=== PATIENT | female | born 1980 | race Caucasian/White ===

== ENCOUNTER 2017-06-10 21:46 | Emergency (ER) | payer OTHER ==
--- NOTE | 2017-06-10 22:02 | EDPHY ---
H & P Stated Complaint: per pt boyfriend, pt began having weakness, unsteady gate, lack of concen HPI/ROS: HPI CHIEF COMPLAINT: Generalized weakness, lightheadedness, crying HISTORY OF PRESENT ILLNESS: Patient otherwise healthy 36-year-old female she presents emergency room by private vehicle with her boyfriend. But reports that she was normal this evening they ate dinner. Suddenly after dinner she states she felt very tired globally. Boyfriend reports that they dinner she felt lightheaded and sleepy she laid down on the ground fell asleep. He encouraged her to go to bed. They put her in bed and she was having a hard time pushing herself up in bed. She began crying. States she feels globally weak. Here in emergency room she denies headache, denies room spinning sensation, denies chest pain or shortness of breath, denies neck pain. Denies nausea or vomiting. Main complaint is global weakness. Also states she feels pressure in her head. 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 Exam Constitutional tearful, crying, anxious appearing, triage nursing summary reviewed, vital signs reviewed, awake/alert. Eyes normal conjunctivae and sclera, EOMI, PERRLA. HENT normal inspection, atraumatic, moist mucus membranes, no epistaxis, neck supple/ no meningismus, no raccoon eyes. Respiratory clear to auscultation bilaterally, normal breath sounds, no respiratory distress, no wheezing. Cardiovascular rate normal, regular rhythm, no murmur, no edema, distal pulses normal. Gastrointestinal soft, non-tender, no rebound, no guarding, normal bowel sounds, no distension, no pulsatile mass. Genitourinary no CVA tenderness. Musculoskeletal no midline vertebral tenderness, full range of motion, no calf swelling, no tenderness of extremities, no meningismus, good pulses, neurovascularly intact. Skin pink, warm, & dry, no rash, skin atraumatic. Neurologic moves all the extremities, slow to follow commands, awake, alert and oriented x 3, AAOx3, moves all 4 extremities equally, motor intact, sensory intact, CN II-XII intact, normal cerebellar, normal vision, normal speech. Psychiatric normal mood/affect. Heme/Lymph/Immune no lymphadenopathy. Differential Diagnosis: Includes but is not limited to in a particular order, acute anxiety, panic attack, electrolyte disturbance, intracranial bleed Medical Decision Making: Plan for plan for this patient full quality assurance monitor final, IV establishment, IV fluid bolus, IV Ativan for anxiety, CT head without contrast rule out intracranial bleed, electrolytes, thyroid, urinalysis, drug screen, alcohol. Re-evaluation: EKG interpretation by me on record in [facility] system. Impression Time of EKG 2223, sinus rhythm rate of 80 there is no acute ischemic changes specifically no ST elevation ST depression T-wave abnormalities or prolonged intervals. CT scan of the Head without IV contrast The results of the study are negative for acute intracranial abnormality The study was read by Dr. garcia. I viewed the images myself on the PACS system. 2336: re-examination this time patient is unable to sit up without room spinning dizziness sensation. Said changed when she presented. I will proceed with CT angiogram head and neck to make sure she does not have a dissection posterior circulation injury. This may be benign positional vertigo. Will also give her p.o. meclizine. 1212AM: CT angiogram head and neck are negative for posterior circulation dissection stroke thrombus. Unremarkable CT angiogram head and neck. Reported to me by Dr. Garcia. 0225AM: I did re-evaluate this patient this time she slept for few hours here in the emergency room. She is now awake sitting upright without any dizziness she ambulated well to the bathroom without any dizziness or ataxia. She has normal gait. She is not nauseous she states the dizziness is greatly improved with meclizine. The pressure in her head is great improved with Toradol. Her urinalysis pending at this time. II gave her the option of being admitted to the hospital for dizziness versus going home she would like to go home. I will prescribe her meclizine for home she does understand she develops worsening dizziness, vomiting, headaches return to the emergency room. Stay well- hydrated take it easy tomorrow. Return if worse. She understands. At time of discharge her neurological exam is unremarkable specifically no focal neuro deficits. Cranial nerves are intact. She has a steady gait. No ataxia. No ongoing dizziness at this time. 0251AM: Urinalysis reviewed. Patient resting comfortably. Patient would like to go home. Ambulated well without difficulty. Meclizine prescription provided. Return emergency room if any worsening symptoms questions or concerns she understands. Source: Patient - Medical/Surgical History Hx Asthma: No Hx Chronic Respiratory Disease: No Hx Diabetes: No Hx Cardiac Disease: No Hx Renal Disease: No Hx Cirrhosis: No Hx Alcoholism: No Hx HIV/AIDS: No Hx Splenectomy or Spleen Trauma: No Other PMH: schulte, R shoulder surg, orif L forearm - Social History Smoking Status: Former smoker Constitutional: Initial Vital Signs Temperature (C) 36.5 C 06/10/17 21:49 Heart Rate 78 06/10/17 21:49 Respiratory Rate 20 06/10/17 21:49 Blood Pressure 130/74 H 06/10/17 21:49 O2 Sat (%) 100 06/10/17 21:49 O2 Delivery Mode Room Air Allergies/Adverse Reactions: latex Allergy (Mild, Verified 06/10/17 21:56) Itching Home Medications: Medication Instructions Recorded Miscellaneous Medical Supply [NO 0 ea MISC AD 07/28/12 HOME MEDS] Meclizine HCl [Meclizine HCl 25 mg 25 mg PO BID #7 tab 06/11/17 (RX,OTC)] Medical Decision Making - Diagnostics Imaging Results: Imaging Impressions Chest X-Ray 06/10/17 22:10 Impression: Clear lungs. No acute process. Head CT 06/10/17 22:10 Impression: Normal brain. No intracranial hemorrhage, mass, or evidence of ischemia. Findings discussed with Emergency Department physician, Grabiel Jack MD at 06/10/2017 23:03. Head CTA 06/10/17 23:34 Impression: 1. Normal intracranial arterial circulation. No evidence of embolic disease or aneurysm. 2. Patent venous system. Findings discussed with Emergency Department physician, Grabiel Jack MD at 06/11/2017 0:12. - Data Points Laboratory Results: Laboratory Results 06/10/17 22:25 06/10/17 22:25 06/11/17 06/10/17 06/10/17 02:15 22:25 22:25 WBC RBC Hgb Hct MCV MCH MCHC RDW Plt Count MPV Neut % (Auto) Lymph % (Auto) [place] % (Auto) Eos % (Auto) Baso % (Auto) Nucleat RBC Rel Count Absolute Neuts (auto) Absolute Lymphs (auto) Absolute Monos (auto) Absolute Eos (auto) Absolute Basos (auto) Absolute Nucleated RBC Immature Gran % Immature Gran # Sodium 141 mEq/L mEq/L (134-144) Potassium 4.3 mEq/L mEq/L (3.5-5.2) Chloride 108 mEq/L mEq/L (97-110) Carbon Dioxide 21 mEq/l L mEq/l (22-31) Anion Gap 12 mEq/L mEq/L (8-16) BUN 15 mg/dL mg/dL (7-23) Creatinine 1.2 mg/dL H mg/dL (0.6-1.0) Estimated GFR 51 Glucose 102 mg/dL H mg/dL (70-100) Calcium 9.6 mg/dL mg/dL (8.5-10.4) Total Bilirubin 0.9 mg/dL mg/dL (0.1-1.4) Conjugated Bilirubin 0.4 mg/dL mg/dL (0.0-0.5) Unconjugated Bilirubin 0.5 mg/dL mg/dL (0.0-1.1) AST 29 IU/L IU/L (14-46) ALT 27 IU/L IU/L (9-52) Alkaline Phosphatase 54 IU/L IU/L (38-126) Troponin I < 0.012 ng/mL ng/mL (0-0.034) Total Protein 7.2 g/dL g/dL (6.3-8.2) Albumin 4.3 g/dL g/dL (3.5-5.0) TSH 4.170 uIU/mL uIU/mL (0.465-4.680) Beta HCG, Qual NEGATIVE Urine Color YELLOW Urine Appearance CLEAR Urine pH 7.0 (5.0-7.5) Ur Specific [place] > 1.035 H (1.002-1.030) Urine Protein NEGATIVE (NEGATIVE) Urine Ketones NEGATIVE (NEGATIVE) Urine Blood NEGATIVE (NEGATIVE) Urine Nitrate NEGATIVE (NEGATIVE) Urine Bilirubin NEGATIVE (NEGATIVE) Urine Urobilinogen NEGATIVE EU EU (0.2-1.0) Ur Leukocyte Esterase NEGATIVE (NEGATIVE) Urine Glucose NEGATIVE (NEGATIVE) Urine Opiates Screen NEGATIVE (NEGATIVE) Urine Barbiturates NEGATIVE (NEGATIVE) Ur Phencyclidine Scrn NEGATIVE (NEGATIVE) Ur Amphetamine Screen NEGATIVE (NEGATIVE) U Benzodiazepines Scrn NEGATIVE (NEGATIVE) Urine Cocaine Screen NEGATIVE (NEGATIVE) U Marijuana (THC) Screen NEGATIVE (NEGATIVE) Ethyl Alcohol < 10 mg/dL mg/dL (0-10) 06/10/17 22:25 WBC 9.72 10^3/uL H 10^3/uL (3.80-9.50) RBC 4.40 10^6/uL 10^6/uL (4.18-5.33) Hgb 13.6 g/dL g/dL (12.6-16.3) Hct 40.2 % % (38.0-47.0) MCV 91.4 fL fL (81.5-99.8) MCH 30.9 pg pg (27.9-34.1) MCHC 33.8 g/dL g/dL (32.4-36.7) RDW 13.0 % % (11.5-15.2) Plt Count 294 10^3/uL 10^3/uL (150-400) MPV 11.1 fL fL (8.7-11.7) Neut % (Auto) 51.3 % % (39.3-74.2) Lymph % (Auto) 35.6 % % (15.0-45.0) [place] % (Auto) 9.8 % % (4.5-13.0) Eos % (Auto) 2.6 % % (0.6-7.6) Baso % (Auto) 0.5 % % (0.3-1.7) Nucleat RBC Rel Count 0.0 % % (0.0-0.2) Absolute Neuts (auto) 4.99 10^3/uL 10^3/uL (1.70-6.50) Absolute Lymphs (auto) 3.46 10^3/uL H 10^3/uL (1.00-3.00) Absolute Monos (auto) 0.95 10^3/uL H 10^3/uL (0.30-0.80) Absolute Eos (auto) 0.25 10^3/uL 10^3/uL (0.03-0.40) Absolute Basos (auto) 0.05 10^3/uL 10^3/uL (0.02-0.10) Absolute Nucleated RBC 0.00 10^3/uL 10^3/uL (0-0.01) Immature Gran % 0.2 % % (0.0-1.1) Immature Gran # 0.02 10^3/uL 10^3/uL (0.00-0.10) Sodium Potassium Chloride Carbon Dioxide Anion Gap BUN Creatinine Estimated GFR Glucose Calcium Total Bilirubin Conjugated Bilirubin Unconjugated Bilirubin AST ALT Alkaline Phosphatase Troponin I Total Protein Albumin TSH Beta HCG, Qual Urine Color Urine Appearance Urine pH Ur Specific [place] Urine Protein Urine Ketones Urine Blood Urine Nitrate Urine Bilirubin Urine Urobilinogen Ur Leukocyte Esterase Urine Glucose Urine Opiates Screen Urine Barbiturates Ur Phencyclidine Scrn Ur Amphetamine Screen U Benzodiazepines Scrn Urine Cocaine Screen U Marijuana (THC) Screen Ethyl Alcohol Medications Given: Discontinued Medications Sodium Chloride (Ns) 1,000 mls @ 0 mls/hr IV ONCE ONE; Wide Open PRN Reason: Protocol Stop: 06/10/17 22:11 Last Admin: 06/10/17 22:26 Dose: 1,000 mls Sodium Chloride (Ns) 1,000 mls @ 0 mls/hr IV ONCE ONE PRN Reason: Wide Open Stop: 06/11/17 00:43 Last Admin: 06/11/17 01:19 Dose: 1,000 mls Ketorolac Tromethamine (Toradol) 15 mg IVP EDNOW ONE Stop: 06/11/17 00:43 Last Admin: 06/11/17 01:20 Dose: 15 mg Lorazepam (Ativan Injection) 0.5 mg IVP EDNOW ONE Stop: 06/10/17 22:11 Last Admin: 06/10/17 22:26 Dose: 0.5 mg Meclizine HCl (Meclizine Hcl) 25 mg PO EDNOW ONE Stop: 06/10/17 23:34 Last Admin: 06/10/17 23:40 Dose: 25 mg Departure - Departure Disposition: Home, Routine, Self-Care Clinical Impression: Vertigo Condition: Good Instructions: Vertigo (ED) Additional Instructions: 1. Stay well-hydrated drink lots of fluids. 2. Take meclizine if you become dizzy if your severely dizzy or vomiting or have a severe headache return to the emergency room. Referrals: NONE *PRIMARY CARE P,. [Primary Care Provider] - As per Instructions Prescriptions: Meclizine HCl [Meclizine HCl 25 mg (RX,OTC)] 25 mg PO BID #7 tab
[2017-06-10] MEDS ORDERED: LORazepam 2 MG/ML INJ IVP ONE (22:10)
[2017-06-10] MEDS ORDERED: NS 1,000 ML IV ONE (22:10)
--- NOTE | 2017-06-10 22:31 | CPEKG ---
Heart Rate: 80 RR Interval: 750 P-R Interval: 156 QRSD Interval: 84 QT Interval: 380 QTC Interval: 439 P [place]: 60 QRS [place]: 16 T Wave [place]: 5 EKG Severity - NORMAL ECG - EKG Impression: SINUS RHYTHM Electronically Signed By: Juan Carlos Kumar 13-Jun-2017 09:10:30
[2017-06-10 22:33] LABS: % IMMATURE GRANULYOCYTES 0.2 % (0.0-1.1); ABSOLUTE IMMATURE GRANULOCYTES 0.02 10^3/uL (0.00-0.10); ADD DIFF? NO; ADD MORPH? NO; ADD SCAN? NO; ATYPICAL LYMPHOCYTE FLAG 10 (0-99); FRAGMENT RBC FLAG 0 (0-99); HEMATOCRIT 40.2 % (38.0-47.0); HEMOGLOBIN 13.6 g/dL (12.6-16.3); LEFT SHIFT FLG 0 (0-99); LIPEMIA HEMOLYSIS FLAG 90 (0-99); MEAN CELL HEMOGLOBIN 30.9 pg (27.9-34.1); MEAN CELL HEMOGLOBIN CONCENTR. 33.8 g/dL (32.4-36.7); MEAN CELL VOLUME 91.4 fL (81.5-99.8); MEAN PLATELET VOLUME 11.1 fL (8.7-11.7); PLATELET CLUMPS FLAG 0 (0-99); PLATELET COUNT 294 10^3/uL (150-400)
[2017-06-10 22:59] LABS: ALANINE AMINOTRANSFERASE 27 IU/L (9-52); ALBUMIN 4.3 g/dL (3.5-5.0); ALKALINE PHOSPHATASE 54 IU/L (38-126); ANION GAP 12 mEq/L (8-16); ASPARTATE AMINOTRANSFERASE 29 IU/L (14-46); BILIRUBIN,TOTAL 0.9 mg/dL (0.1-1.4); BILIRUBIN-CONJUGATED 0.4 mg/dL (0.0-0.5); BILIRUBIN-UNCONJUGATED 0.5 mg/dL (0.0-1.1); CALCIUM 9.6 mg/dL (8.5-10.4); CARBON DIOXIDE 21 mEq/l (22-31); CHLORIDE 108 mEq/L (97-110); CREATININE 1.2 mg/dL (0.6-1.0); ETHANOL SERUM < 10 mg/dL (0-10); GLOMERULAR FILTRATION RATE 51; GLUCOSE 102 mg/dL (70-100); POTASSIUM 4.3 mEq/L (3.5-5.2); SODIUM 141 mEq/L (134-144); TOTAL PROTEIN 7.2 g/dL (6.3-8.2)
[2017-06-10 23:09] LABS: TROPONIN I < 0.012 ng/mL (0-0.034)
[2017-06-10] MEDS ORDERED: MECLIZINE HCL 25 MG TAB PO ONE (23:33)
[2017-06-10] MEDS ORDERED: IOPAMIDOL (ISOVUE 370) 100 ML BTL IV ONE (23:41)
[2017-06-11 00:15] VITALS: RESP 18
[2017-06-11] MEDS ORDERED: KETOROLAC 30 MG/1 ML SDV IVP ONE (00:42)
[2017-06-11] MEDS ORDERED: NS 1,000 ML IV ONE (00:42)
[2017-06-11 02:50] LABS: COLOR YELLOW; LEUKOCYTE ESTERASE,URINE NEGATIVE (NEGATIVE); NITRITE,URINE NEGATIVE (NEGATIVE)
[2017-06-11 03:17] VITALS: BP 113/48; PULSE 63; TEMP 98.6; O2SAT 98
== END 2017-06-11 03:18 | disposition home or self-care (01) ==
DX: R42 Dizziness and giddiness (principal); E86.9 Volume depletion, unspecified; Z87.891 Personal history of nicotine dependence; Z91.040 Latex allergy status
CPT/HCPCS: 80305; 96374; G0480; J1885; J2060; Q9967

== ENCOUNTER → 2017-08-06 | Outpatient (CLI) | payer OTHER ==
[~2017-08-06] MED LIST: GADOBUTROL 10 ML VIAL IVP ONE
== END ==
LOC: FIMAGING 19:33
PROVIDERS: ATTEND Physician Assistant Medical
DX: G43.009 Migraine without aura, not intractable, without status migrainosus (principal); R42 Dizziness and giddiness
CPT/HCPCS: A9585

== ENCOUNTER → 2017-10-18 | Outpatient (CLI) | payer OTHER ==
[~2017-10-18] MED LIST changes: -GADOBUTROL 10 ML VIAL IVP ONE; +IOPAMIDOL (ISOVUE 370) 100 ML BTL IV ONE
== END ==
LOC: FIMAGING 12:49
PROVIDERS: ATTEND Obstetrics & Gynecology
DX: N97.9 Female infertility, unspecified (principal)
CPT/HCPCS: Q9967